=== PATIENT | male | born 1950 | race Caucasian/White ===

== ENCOUNTER 2016-08-18 20:53 | Inpatient (IN) | payer MEDICARE ==
[~2016-08-18] VITALS: Ht 170.2 cm; Wt 65.3 kg
[~2016-08-18 20:53] MED LIST: ASPI-482 PO; ATORVASTATIN CA80 MG PO; CARV25TA2 PO; DIGO125T PO; ENAL20TA PO; FLUO20CA8 PO; HYDR12.58 PO; HYDR15SO4 PO; METF10002 PO; NITR0.4T SL
[2016-08-18] MEDS ORDERED: HEPARIN for IV BOLUS 10,000 UNIT/10 ML VIAL. ONE ×2 (21:03→21:08)
[2016-08-18] MEDS ORDERED: LIDOCAINE 2% 20 ML VIAL. ONE (21:06)
[2016-08-18] MEDS ORDERED: IODIXANOL 320 MG/ML 100 ML VIAL. ONE (21:06)
[2016-08-18] MEDS ORDERED: ASPIRIN 81 MG TAB.CHEW PO ONE (21:15)
[2016-08-18 21:18] LABS: BASO # 0.1 x10^3/uL (0.0-0.2); BASO % 1 % (0-3); EOS % 3 % (0-3); HEMATOCRIT 31.9 % (39.0-53.0); HEMOGLOBIN 10.7 g/dL (13.0-17.5); LYMPH # 2.6 x10^3/uL (1.0-4.8); LYMPH % 24 % (24-48); MEAN CORPUSCULAR HEMOGLOBIN 31 pg (25-35); MEAN CORPUSCULAR HGB CONC 34 g/dL (31-37); MEAN CORPUSCULAR VOLUME 92 fL (79-100); MONO % 8 % (0-9); NEUT % 64 % (31-73); PLATELET COUNT 172 x10^3/uL (140-400); RED BLOOD COUNT 3.45 x10^6/uL (4.30-5.70); RED CELL DISTRIBUTION WIDTH 15.2 % (11.5-14.5); WHITE BLOOD COUNT 10.7 x10^3/uL (4.0-11.0)
[2016-08-18 21:24] LABS: PROTHROMBIN TIME PATIENT 12.5 SEC (11.7-14.0)
--- NOTE | 2016-08-18 21:41 | PHYS DOC ---
Adult General Chief Complaint Chief Complaint: CHEST PAIN HPI HPI 66-year-old male with a history of ischemic cardiomyopathy who is recently had a stent placed at [facility] presents after several syncopal episodes today. He also complained of some mild mid sternal chest discomfort. He denies any significant shortness of breath nausea or diaphoresis. Because of his syncopal episodes EMS was called to the house and they checked an EKG and noted that there was ST elevation. A code STEMI was called in the field. Dr. Mendez was notified of the code STEMI immediately after the code was called. [] Review of Systems Review of Systems Constitutional: Denies fever or chills [] Eyes: Denies change in visual acuity, redness, or eye pain [] HENT: Denies nasal congestion or sore throat [] Respiratory: Denies cough or shortness of breath [] Cardiovascular: No additional information not addressed in HPI [] GI: Denies abdominal pain, nausea, vomiting, bloody stools or diarrhea [] : Denies dysuria or hematuria [] Musculoskeletal: Denies back pain or joint pain [] Integument: Denies rash or skin lesions [] Neurologic: Denies headache, focal weakness or sensory changes [] Endocrine: Denies polyuria or polydipsia [] Current Medications Current Medications Current Medications Medications (Trade) Dose Ordered Sig/Yan Start Time Stop Time Status Last Admin Dose Admin Aspirin (Children'S Aspirin) 324 mg 1X ONCE 08/18/16 21:15 08/18/16 21:16 DC Heparin Sodium (Porcine) 1,900 unit PRN Q6HRS PRN 08/18/16 21:45 Heparin Sodium (Porcine) 17457 unit 10,000 unit STK-MED ONCE 08/18/16 21:08 08/18/16 21:09 DC Heparin Sodium/ Dextrose 500 ml @ 0 mls/hr CONT PRN 08/18/16 21:45 08/18/16 22:01 0 MLS/HR Heparin Sodium/ Sodium Chloride 1,000 ml @ As Directed STK-MED ONCE 08/18/16 21:06 08/18/16 21:07 DC Iodixanol (Visipaque 320) 100 ml STK-MED ONCE 08/18/16 21:06 08/18/16 21:07 DC Lidocaine HCl 20 ml STK-MED ONCE 08/18/16 21:06 08/18/16 21:07 DC Morphine Sulfate 4 mg PRN Q2HR PRN 08/18/16 21:45 08/19/16 21:44 Nitroglycerin (Nitrostat) 0.4 mg PRN Q5MIN PRN 08/18/16 21:45 08/19/16 21:44 Ondansetron HCl (Zofran) 4 mg PRN Q8HRS PRN 08/18/16 21:45 08/19/16 21:44 Allergies Allergies Allergies Coded Allergies Type Severity Reaction Last Updated Verified No Known Drug Allergies 02/28/14 No Physical Exam Physical Exam Constitutional: Well developed, well nourished, no acute distress, non-toxic appearance. [] HENT: Normocephalic, atraumatic, bilateral external ears normal, oropharynx moist, no oral exudates, nose normal. [] Eyes: PERRLA, EOMI, conjunctiva normal, no discharge. [] Neck: Normal range of motion, no tenderness, supple, no stridor. [] Cardiovascular:Heart rate regular rhythm, no murmur [] Lungs & Thorax: Bilateral breath sounds clear to auscultation [] Abdomen: Bowel sounds normal, soft, no tenderness, no masses, no pulsatile masses. [] Skin: Warm, dry, no erythema, no rash. [] Back: No tenderness, no CVA tenderness. [] Extremities: No tenderness, no cyanosis, no clubbing, ROM intact, no edema. [] Neurologic: Alert and oriented X 3, normal motor function, normal sensory function, no focal deficits noted. [] Psychologic: Affect normal, judgement normal, mood normal. [] Current Patient Data Vital Signs Vital Signs Date Time Temp Pulse Resp B/P Pulse Ox O2 Delivery O2 Flow Rate FiO2 08/18/16 21:41 79 117/63 97 Nasal Cannula 2 08/18/16 21:36 98.3 20 98.3 Lab Values Laboratory Tests Test 08/18/16 20:58 08/18/16 21:05 POC Troponin I 0.03ng/ml (<0.08) White Blood Count 10.7x10^3/uL (4.0-11.0) Red Blood Count 3.45x10^6/uL (4.30-5.70) L Hemoglobin 10.7g/dL (13.0-17.5) L Hematocrit 31.9% (39.0-53.0) L Mean Corpuscular Volume 92fL (79-100) Mean Corpuscular Hemoglobin 31pg (25-35) Mean Corpuscular Hemoglobin Concent 34g/dL (31-37) Red Cell Distribution Width 15.2% (11.5-14.5) H Platelet Count 172x10^3/uL (140-400) Neutrophils (%) (Auto) 64% (31-73) Lymphocytes (%) (Auto) 24% (24-48) Monocytes (%) (Auto) 8% (0-9) Eosinophils (%) (Auto) 3% (0-3) Basophils (%) (Auto) 1% (0-3) Neutrophils # (Auto) 6.8x10^3uL (1.8-7.7) Lymphocytes # (Auto) 2.6x10^3/uL (1.0-4.8) Monocytes # (Auto) 0.9x10^3/uL (0.0-1.1) Eosinophils # (Auto) 0.3x10^3/uL (0.0-0.7) Basophils # (Auto) 0.1x10^3/uL (0.0-0.2) Prothrombin Time 12.5SEC (11.7-14.0) Prothrombin Time INR 1.0 (0.8-1.1) PTT 27SEC (24-38) Sodium Level 134mmol/L (136-145) L Potassium Level 4.3mmol/L (3.5-5.1) Chloride Level 98mmol/L (98-107) Carbon Dioxide Level 22mmol/L (21-32) Anion Gap 14 (6-14) Blood Urea Nitrogen 38mg/dL (8-26) H Creatinine 1.4mg/dL (0.7-1.3) H Estimated GFR (Cockcroft-Gault) 50.5 Glucose Level 191mg/dL (70-99) H Calcium Level 9.4mg/dL (8.5-10.1) Magnesium Level 1.6mg/dL (1.8-2.4) L Total Bilirubin 0.4mg/dL (0.2-1.0) Direct Bilirubin 0.1mg/dL (0.0-0.2) Aspartate Amino Transferase (AST) 20U/L (15-37) Alanine Aminotransferase (ALT) 27U/L (16-63) Alkaline Phosphatase 52U/L (46-116) Creatine Kinase 37U/L (39-308) L Creatine Kinase MB (Mass) 1.1ng/mL (0.0-3.6) Creatine Kinase MB Relative Index 3.0% (0-4) Troponin I Quantitative < 0.017ng/mL (0.000-0.055) FT-Kbj-Z-Type Natriuretic Peptide 930pg/mL (0-124) H Total Protein 7.0g/dL (6.4-8.2) Albumin 3.6g/dL (3.4-5.0) Laboratory Tests 08/18/16 21:05 Laboratory Tests 08/18/16 21:05 EKG EKG [EKG normal sinus rhythm with ST elevation V1 through V3 with reciprocal changes inferiorly rate of 70] Radiology/Procedures Radiology/Procedures [] Impressions: Chest x-ray: Negative exam pacer in place Course & Med Decision Making Course & Med Decision Making Pertinent Labs and Imaging studies reviewed. (See chart for details) [ED course: Evaluation reveals a 66-year-old male in absolutely no distress. On arrival his EKG was interpreted by me as a likely ST elevation a code STEMI was already underway and I spoke with Dr. Mendez who was in route at the time of our conversation. I told him the patient's symptoms were not concerning however his EKG was ominous appearing. After Dr. Mendez arrived he reviewed the EKG along with questioning the patient and agreed with me that he did not think this was an acute ST elevation OK despite the EKG findings. However, we did determine that it wouldn't be in the patient's best interest to be admitted to the hospital on a heparin drip. Aspirin was given to the patient by EMS in route. Patient remained pain-free throughout his stay in the department.] Dragon Disclaimer Dragon Disclaimer This electronic medical record was generated, in whole or in part, using a voice recognition dictation system. Departure Departure Impression: Primary Impression: Acute coronary syndrome Additional Impression: Syncope Disposition: 09 ADMITTED INPATIENT Admitting Physician: Other (Reusch) Condition: STABLE Referrals: LLUVIA BRAGA MD (PCP) Problem Qualifiers Additional Impression: Syncope Syncope type: unspecified Qualified Code: R55 - Syncope and collapse TRINI CASTILLO DO Aug 18, 2016 21:40
[2016-08-18 21:44] LABS: CALCIUM 9.4 mg/dL (8.5-10.1); CREATININE 1.4 mg/dL (0.7-1.3); GFR 50.5; POTASSIUM 4.3 mmol/L (3.5-5.1)
[2016-08-18] MEDS ORDERED: MORPHINE SULFATE 4 MG/ML DISP.SYRIN. IV PRN (21:45)
[2016-08-18] MEDS ORDERED: NITROGLYCERIN SUBLINGUAL 0.4 MG BOTTLE OF 25. SL PRN (21:45)
[2016-08-18] MEDS ORDERED: HEPARIN for IV BOLUS 10,000 UNIT/10 ML VIAL. IV PRN (21:45)
[2016-08-18] MEDS ORDERED: ONDANSETRON PF 4 MG/2 ML VIAL. IV PRN (21:45)
[2016-08-18 21:46] LABS: CKMB MASS 1.1 ng/mL (0.0-3.6)
[2016-08-18 21:48] LABS: ALBUMIN 3.6 g/dL (3.4-5.0); DIRECT BILIRUBIN 0.1 mg/dL (0.0-0.2); MAGNESIUM 1.6 mg/dL (1.8-2.4); TOTAL BILIRUBIN 0.4 mg/dL (0.2-1.0)
--- NOTE | 2016-08-18 21:59 | PDOC2 ---
CONSULT Date of Consult Date of Consult DATE: 08/18/16 TIME: 21:41 Reason for Consult Reason for Consult: Syncope, abnormal ekg Referring Physician Referring Physician: Dr. Yarbrough Identification/Chief Complaint Chief Complaint Syncope Source Source: Patient History of Present Illness Reason for Visit: The patient is a 66 year old male who reports an episode of syncope this evening. He was doing his usual activities and reportedly lost consciousness. He denies any chest pain, SOB or lightheadedness prior to the episode. He was transported to the ER and on exam is pain free and feeling well. He has a history of a large WV in the late with an ICD placed in 2005 and replaced in 2012. He is followed at and reports a heart cath there last month and received a stent. He reports normal function of his Medtronics ICD for a reportedly ischemic cardiomyopathy. His EKG shows anterior ST elevation. His initial troponin is normal. 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 Past Medical History Cardiovascular: CAD, CHF, HTN, WV, Syncope, Hyperlipidemia Pulmonary: COPD GI: GERD Renal/: Benign prostatic enlarg. Past Surgical History Past Surgical History: Other (coronary stents, ICD) Family History Family History: Heart Disease Social History <1 pack per day Current Medications Current Medications Current Medications Heparin Sodium (Porcine) 90608 unit 10,000 unit STK-MED ONCE .ROUTE ; Start at 21:03; Stop 08/18/16 at 21:04; Status DC Heparin Sodium/ Sodium Chloride 1,000 ml @ As Directed STK-MED ONCE .ROUTE ; Start 08/18/16 at 21:06; Stop 08/18/16 at 21:07; Status DC Lidocaine HCl 20 ml STK-MED ONCE .ROUTE ; Start 08/18/16 at 21:06; Stop at 21:07; Status DC Iodixanol (Visipaque 320) 100 ml STK-MED ONCE .ROUTE ; Start 08/18/16 at 21:06; Stop 08/18/16 at 21:07; Status DC Aspirin (Children'S Aspirin) 324 mg 1X ONCE PO ; Start 08/18/16 at 21:15; Stop 08/18/16 at 21:16; Status DC Heparin Sodium (Porcine) 10,000 unit STK-MED ONCE .ROUTE ; Start 08/18/16 at 21: 08; Stop 08/18/16 at 21:09; Status DC Active Scripts Active Reported Metformin Hcl 1,000 Mg Tablet 1,000 Mg PO 2TABS PO BID Aspir 81 (Aspirin) 81 Mg Tablet.dr 81 Mg PO DAILY Enalapril Maleate 20 Mg Tablet 1 Tab PO BID Nitrostat (Nitroglycerin) 0.4 Mg Tab.subl 0.4 Mg SL PRN CHEST PAINS Digoxin 125 Mcg Tablet 125 Mcg PO DAILY Hydrochlorothiazide Tablet (Hydrochlorothiazide) 12.5 Mg Tablet 12.5 Mg PO DAILY Fluoxetine Hcl 20 Mg Capsule 20 Mg PO DAILY Carvedilol 25 Mg Tablet 25 Mg PO BID Atorvastatin Calcium 80 Mg Tablet 80 Mg PO HS Allergies Allergies: Coded Allergies: No Known Drug Allergies (Unverified , 02/28/14) ROS Cardiovascular: yes Other (syncope) Physical Exam General: Alert, Cooperative, No acute distress HEENT: PERRLA Lungs: Clear to auscultation Heart: Regular rate Abdomen: Normal bowel sounds Extremities: No clubbing Skin: No rashes Labs Labs Laboratory Tests Test 08/18/16 20:58 08/18/16 21:05 Bedside Troponin I 0.03ng/ml (<0.08) White Blood Count 10.7x10^3/uL (4.0-11.0) Red Blood Count 3.45x10^6/uL (4.30-5.70) Hemoglobin 10.7g/dL (13.0-17.5) Hematocrit 31.9% (39.0-53.0) Mean Corpuscular Volume 92fL (79-100) Mean Corpuscular Hemoglobin 31pg (25-35) Mean Corpuscular Hemoglobin Concent 34g/dL (31-37) Red Cell Distribution Width 15.2% (11.5-14.5) Platelet Count 172x10^3/uL (140-400) Neutrophils (%) (Auto) 64% (31-73) Lymphocytes (%) (Auto) 24% (24-48) Monocytes (%) (Auto) 8% (0-9) Eosinophils (%) (Auto) 3% (0-3) Basophils (%) (Auto) 1% (0-3) Neutrophils # (Auto) 6.8x10^3uL (1.8-7.7) Lymphocytes # (Auto) 2.6x10^3/uL (1.0-4.8) Monocytes # (Auto) 0.9x10^3/uL (0.0-1.1) Eosinophils # (Auto) 0.3x10^3/uL (0.0-0.7) Basophils # (Auto) 0.1x10^3/uL (0.0-0.2) Prothrombin Time 12.5SEC (11.7-14.0) Prothromb Time International Ratio 1.0 (0.8-1.1) Troponin I Quantitative < 0.017ng/mL (0.000-0.055) Laboratory Tests Test 08/18/16 20:58 08/18/16 21:05 Bedside Troponin I 0.03ng/ml (<0.08) White Blood Count 10.7x10^3/uL (4.0-11.0) Red Blood Count 3.45x10^6/uL (4.30-5.70) Hemoglobin 10.7g/dL (13.0-17.5) Hematocrit 31.9% (39.0-53.0) Mean Corpuscular Volume 92fL (79-100) Mean Corpuscular Hemoglobin 31pg (25-35) Mean Corpuscular Hemoglobin Concent 34g/dL (31-37) Red Cell Distribution Width 15.2% (11.5-14.5) Platelet Count 172x10^3/uL (140-400) Neutrophils (%) (Auto) 64% (31-73) Lymphocytes (%) (Auto) 24% (24-48) Monocytes (%) (Auto) 8% (0-9) Eosinophils (%) (Auto) 3% (0-3) Basophils (%) (Auto) 1% (0-3) Neutrophils # (Auto) 6.8x10^3uL (1.8-7.7) Lymphocytes # (Auto) 2.6x10^3/uL (1.0-4.8) Monocytes # (Auto) 0.9x10^3/uL (0.0-1.1) Eosinophils # (Auto) 0.3x10^3/uL (0.0-0.7) Basophils # (Auto) 0.1x10^3/uL (0.0-0.2) Prothrombin Time 12.5SEC (11.7-14.0) Prothromb Time International Ratio 1.0 (0.8-1.1) Troponin I Quantitative < 0.017ng/mL (0.000-0.055) Images Images CXR pending Assessment/Plan Assessment/Plan 1. Syncope. Uncertain etiology. Rhythm stable. ICD in place and will interrogate. Will obtain records from . 2. Abnormal EKG. Abnormal EKG with a history of previous large WV and ICD placement. The patient also reports a cath at last month and probable stent placement. He is on ASA and Brilenta and reports taking his medications as directed. He is pain free. Initial troponin is normal. He denies SOB, dizziness or other discomfort. His BP and rhythm are stable. I do not believe that an emergency cath is indicated. Will continue baseline medications, heparinize, rule out WV and obtain old records. This was discussed with the patient. 3. Ishemic CM. Continue meds as above. Check ECHO. records. 4. ICD. Medtronics . Will interrogate. 5. HTN. Continue medications. 6. HLD. 7. Squamous cell Ca of the vocal cords. S/P radiation treatment Thank you for allowing us to participate in the care of your patient. CHRIS SHAH MD Aug 18, 2016 21:59
[2016-08-18] MEDS ORDERED: HEPARIN for IV BOLUS 10,000 UNIT/10 ML VIAL. IV ONE (22:00)
[2016-08-18] MEDS: HEPARIN 25,000UTS/500ML PREMIX 500 ML IV PRN (22:01)
[2016-08-18 22:45] VITALS: BP 139/63
[2016-08-18 23:00] VITALS: BP 122/42
[2016-08-18 23:15] VITALS: BP 135/38
[2016-08-18 23:30] VITALS: BP 131/46
--- NOTE | 2016-08-18 23:37 | ACF ---
Admission Forms Criteria SYNCOPE Clinical Indications for Admission to Inpatient Care ( Place 'X' for any and all applicable criteria): Admission is indicated for syncope and ANY ONE of the following (1)(2)(3)(4)(5) (6)(7) : [X]I. Inpatient admission required rather than observation care (Also use Syncope: Observation Care Criteria as appropriate) because of ANY ONE of the following: [ ]a) Hemodynamic instability that is severe or persistent [ ]b) Cardiac arrhythmias of immediate concern identified or strongly suspected (eg, needs electrophysiologic study) [X]c) Acute coronary syndrome identified (Also use Myocardial Infarction or Angina Criteria form ) [ ]d) Structural cardiac disorder (eg, aortic stenosis) suspected as cause that requires immediate correction [ ]e) Respiratory symptoms (eg, dyspnea, tachypnea) that are severe or persistent [ ]f) Neurologic signs or symptoms that are severe or persistent ( eg, stroke, seizures, altered mental status) [ ]g) Severe electrolyte abnormalities requiring inpatient care [ ]h) Supplemental oxygen or respiratory treatment for over 24 hrs that are performable only in acute inpatient setting [ ]i) IV fluid to replace significant ongoing (eg, for over 24 hrs ) losses (>3 L/m2 per day) [ ]j) Continuous intravenous infusion of anticoagulation, platelet inhibitor, vasoactive, or antiarrhythmic medication(15)(16) [ ]k) Pulmonary artery catheter monitoring [ ]l) Temporary pacemaker placement(17) [ ]m) Emergent cardioversion(18) [ ]n) Other conditions, treatment or monitoring requiring inpatient admission [ ]II. Suspicion of imminently dangerous cause (eg, rare causes like pericardial tamponade, pulmonary embolism) [ ]III. Syncope causing severe injury requiring hospitalization Extended stay beyond goal length of stay may be needed for(28) [ ]a) Dangerous arrhythmia(15)(23)(27)(29) [ ]b) Myocardial ischemia [ ]c) Seizure disorder [ ]d) Syncope-related injuries The original [employer] content created by [employer] has been revised. The portions of the content which have been revised are identified through the use of italic text or in bold, and [employer] has neither reviewed nor approved the modified material. All other unmodified content is copyright [employer]. Please see references footnoted in the original [facility] edition 2016 Admission Criteria Met?: Yes CEE LIVINGSTON Aug 18, 2016 23:37
[2016-08-18 23:45] VITALS: BP 115/62
[2016-08-18 23:59] VITALS: BP 115/38
[2016-08-19] VITALS (21 sets, daily range): BP systolic 95–143; BP diastolic 32–78
[2016-08-19] MEDS ORDERED: CARV12.5 PO (02:55)
[2016-08-19] MEDS ORDERED: ENAL10TA PO (02:57)
[2016-08-19] MEDS ORDERED: FLUT16SP NS (02:59)
[2016-08-19] MEDS ORDERED: FURO-69 PO (03:09)
[2016-08-19] MEDS ORDERED: TICA90TA PO (03:09)
[2016-08-19] MEDS ORDERED: METF10002 PO (03:09)
[2016-08-19] MEDS ORDERED: MULT-246 PO (03:09)
[2016-08-19] MEDS ORDERED: SPIR25TA3 PO (03:09)
[2016-08-19] MEDS ORDERED: OMEG1CAP6 PO (03:10)
[2016-08-19] MEDS ORDERED: OMEG100021 PO (03:13)
[2016-08-19 04:45] LABS: CALCIUM 9.4 mg/dL (8.5-10.1); CREATININE 1.1 mg/dL (0.7-1.3); GFR 66.8; POTASSIUM 4.2 mmol/L (3.5-5.1)
[2016-08-19 04:47] LABS: CHOLESTEROL/HDL RATIO 2.8
--- NOTE | 2016-08-19 07:46 | EKG ---
[facility] [address] [place] [address] Test Date: 2016-08-18 Test Time: 20:55:49 Pat Name: HILDA MCKEON Department: Room: 269 1 Gender: M Subcontract Manager: : 1950 Requested By: TRINI CASTILLO Order Number: [id number] Reading MD: Xin Guerrero Measurements Intervals [place] Rate: 94 P: -5 HI: 204 QRS: 17 QRSD: 114 T: -81 QT: 340 QTc: 430 Interpretive Statements SINUS RHYTHM VENTRICULAR PREMATURE COMPLEX(ES) QRS(T) CONTOUR ABNORMALITY CONSISTENT WITH ANTEROSEPTAL INFARCT POSSIBLY RECENT ST ABNORMALITY, POSSIBLE INFEROLATERAL SUBENDOCARDIAL INJURY RI6.01 No previous ECG available for comparison Electronically Signed On 08-19-2016 20:57:34 CDT by Xin Guerrero
--- NOTE | 2016-08-19 08:06 | EKG ---
[facility] [address] [place] [address] Test Date: 2016-08-18 Test Time: 22:08:41 Pat Name: HILDA MCKEON Department: Room: 269 1 Gender: M Supervisor Glycerin: : 1950 Requested By: CHRIS SHAH Order Number: [id number] Reading MD: Measurements Intervals [place] Rate: 76 P: 70 FL: 200 QRS: 11 QRSD: 102 T: 100 QT: 380 QTc: 432 Interpretive Statements SINUS RHYTHM QRS(T) CONTOUR ABNORMALITY CONSISTENT WITH ANTEROSEPTAL INFARCT AGE UNDETERMINED T ABNORMALITY IN ANTERIOR LEADS LATERAL LEADS RI6.01 No previous ECG available for comparison
--- NOTE | 2016-08-19 08:07 | RAD ---
Portable chest, 08/18/2016: History: Chest pain Comparison is made to a study from 11/06/2015. A left-sided transvenous pacemaker is in place with 2 leads extending in the right heart. The heart size and pulmonary vascularity are normal. No pulmonary infiltrates are seen. There is unchanged blunting of the left lateral costophrenic angle probably due to scarring. Blunting of the right lateral costophrenic angle is new raising the possibility of a tiny amount of right-sided pleural fluid. An oblique line overlying the right upper chest most likely represents a skinfold. IMPRESSION: 1. Possible tiny right pleural effusion. 2. No acute pulmonary infiltrates.
[2016-08-19] MEDS ORDERED: ASPIRIN ENTERIC COATED 81 MG TABLET.DR. PO SCH (09:00)
--- NOTE | 2016-08-19 09:14 | EKG ---
[facility] [address] [place] [address] Test Date: 2016-08-19 Test Time: 09:06:06 Pat Name: HILDA MCKEON Department: Room: 269 1 Gender: M Certified Technician Specialist: MICHELLE : 1950 Requested By: MERRY GLORIA Order Number: [id number] Reading MD: Measurements Intervals [place] Rate: 65 P: 90 NV: 200 QRS: 8 QRSD: 108 T: 101 QT: 402 QTc: 419 Interpretive Statements SINUS RHYTHM VENTRICULAR PREMATURE COMPLEX(ES) QRS(T) CONTOUR ABNORMALITY CONSISTENT WITH ANTEROSEPTAL INFARCT AGE UNDETERMINED T ABNORMALITY IN ANTERIOR LEADS LATERAL LEADS ABNORMAL ECG RI6.01 No previous ECG available for comparison
--- NOTE | 2016-08-19 09:15 | PDOC ---
CARDIO Progress Notes Date and Time Date of Service 08/19/2016 Time of Evaluation 0930 Subjective Subjective: No Chest Pain, No shortness of breath, No Palpitations, No Dizziness Vitals Vitals Vital Signs Date Time Temp Pulse Resp B/P Pulse Ox O2 Delivery O2 Flow Rate FiO2 08/19/16 08:00 Room Air 2.0 08/19/16 07:00 97.9 65 17 131/35 99 97.9 Weight Weight [ ] Input and Output Intake and Output Intake and Output 08/19/16 07:00 Intake Total 881 ml Output Total 870 ml Balance 11 ml Intake Oral 740 ml IV Total 141 ml Output Urine Total 870 ml Laboratory Labs Laboratory Tests Test 08/18/16 20:58 08/18/16 21:05 08/19/16 03:45 Bedside Troponin I 0.03ng/ml (<0.08) White Blood Count 10.7x10^3/uL (4.0-11.0) Red Blood Count 3.45x10^6/uL (4.30-5.70) Hemoglobin 10.7g/dL (13.0-17.5) Hematocrit 31.9% (39.0-53.0) Mean Corpuscular Volume 92fL (79-100) Mean Corpuscular Hemoglobin 31pg (25-35) Mean Corpuscular Hemoglobin Concent 34g/dL (31-37) Red Cell Distribution Width 15.2% (11.5-14.5) Platelet Count 172x10^3/uL (140-400) Neutrophils (%) (Auto) 64% (31-73) Lymphocytes (%) (Auto) 24% (24-48) Monocytes (%) (Auto) 8% (0-9) Eosinophils (%) (Auto) 3% (0-3) Basophils (%) (Auto) 1% (0-3) Neutrophils # (Auto) 6.8x10^3uL (1.8-7.7) Lymphocytes # (Auto) 2.6x10^3/uL (1.0-4.8) Monocytes # (Auto) 0.9x10^3/uL (0.0-1.1) Eosinophils # (Auto) 0.3x10^3/uL (0.0-0.7) Basophils # (Auto) 0.1x10^3/uL (0.0-0.2) Prothrombin Time 12.5SEC (11.7-14.0) Prothromb Time International Ratio 1.0 (0.8-1.1) Activated Partial Thromboplast Time 27SEC (24-38) Sodium Level 134mmol/L (136-145) 138mmol/L (136-145) Potassium Level 4.3mmol/L (3.5-5.1) 4.2mmol/L (3.5-5.1) Chloride Level 98mmol/L (98-107) 103mmol/L (98-107) Carbon Dioxide Level 22mmol/L (21-32) 24mmol/L (21-32) Anion Gap 14 (6-14) 11 (6-14) Blood Urea Nitrogen 38mg/dL (8-26) 34mg/dL (8-26) Creatinine 1.4mg/dL (0.7-1.3) 1.1mg/dL (0.7-1.3) Estimated GFR (Cockcroft-Gault) 50.5 66.8 Glucose Level 191mg/dL (70-99) 81mg/dL (70-99) Calcium Level 9.4mg/dL (8.5-10.1) 9.4mg/dL (8.5-10.1) Magnesium Level 1.6mg/dL (1.8-2.4) Total Bilirubin 0.4mg/dL (0.2-1.0) Direct Bilirubin 0.1mg/dL (0.0-0.2) Aspartate Amino Transf (AST/SGOT) 20U/L (15-37) Alanine Aminotransferase (ALT/SGPT) 27U/L (16-63) Alkaline Phosphatase 52U/L (46-116) Creatine Kinase 37U/L (39-308) Creatine Kinase MB (Mass) 1.1ng/mL (0.0-3.6) Creatine Kinase MB Relative Index 3.0% (0-4) Troponin I Quantitative < 0.017ng/mL (0.000-0.055) 0.179ng/mL (0.000-0.055) YE-Gis-J-Type Natriuretic Peptide 930pg/mL (0-124) Total Protein 7.0g/dL (6.4-8.2) Albumin 3.6g/dL (3.4-5.0) Heparin Anti-Xa Act, Unfractionated 0.46IU/mL (0.30-0.70) Triglycerides Level 53mg/dL (0-150) Cholesterol Level 139mg/dL (0-200) LDL Cholesterol, Calculated 78mg/dL (0-100) VLDL Cholesterol, Calculated 11mg/dL (0-40) HDL Cholesterol 50mg/dL (40-60) Cholesterol/HDL Ratio 2.8 Physical Exam HEENT: Neck Supple W Full Motion Chest: Symmetric LUNGS: Clear to Auscultation Heart: S1S2, RRR (SR no significant ectopies overnight) Abdomen: Soft N/T Extremities: No Edema, No Calf Tenderness Neurology: alert, oriented, follow commands Assessment Assessment 1. Multiple syncopal episodes with nontraumatic fall: 2-3 x yesterday. The only presyncopal symptom is lightheadedness. CP free. possible arrhythmia in etiology with possible orthostatic element 2. Abnormal EKG: Intermittent changes are noted with initial EKG which then improved with subsequent EKGs. Vasopasm could not be ruled out as well. 3. CAD: PTCA in 1999. notable for lg [place] 06/2016 with stent placement (BMS vs YANNI , unknown target vessels). Compliant with DAPT 4. ICM/AICD in situ: Date of placement unknown. [employer]tr[employer]. Per pt originally placed in 1999 then 2012 lead fracture repair 5. Chronic systolic CHF: compensated 6. HTN: controlled 7. HLP: controlled 8. Squamous cell Ca of the vocal cords. S/P radiation treatment 9. ALY on CKD: suspect stage 3. improved. 10. Hx of COPD 11. Possible Orthostasis/hypotension at home: fluid intake in the last 36 hours was 6 cans of coke zero Recommendations 1. Repeat EKG, trend troponin 2. Obtain [facility] records 3. No verbalized complains of shock from AICD. Interrogate device 4. TTE 5. Remains asymptomatic, CP free. Continue with DAPT and secondary prevention 6. Heparin drip, Will consider for follow up ischemic workup pending above tests results, will discuss with primary project program manager MERRY GLORIA APRN Aug 19, 2016 09:15
[2016-08-19] MEDS ORDERED: TICAGRELOR 90 MG TABLET. PO SCH (09:30)
[2016-08-19] MEDS ORDERED: NITROGLYCERIN SUBLINGUAL 0.4 MG BOTTLE OF 25. SL PRN ×2 (09:30→11:04)
[2016-08-19] MEDS ORDERED: DEXTROSE 50% 25 GM / 50ML DISP.SYRIN. IV PRN (09:30)
[2016-08-19] MEDS ORDERED: FLUTICASONE 50MCG/NASAL SPRAY 16GM BOTTLE. NS PRN (09:30)
--- NOTE | 2016-08-19 09:44 | CARD ---
APPROVED REPORT EXAM: Two-dimensional and M-mode echocardiogram with Doppler and color Doppler. Other Information Quality : Average Rhythm : NSR INDICATION Cardiomyopathy 2D DIMENSIONS Left Atrium(2D)4.9 (1.6-4.0cm)IVSd1.0 (0.7-1.1cm) Aortic Root(2D)3.3 (2.0-3.7cm)LVDd6.5 (3.9-5.9cm) LVOT Diameter2.2 (1.8-2.4cm)PWd1.0 (0.7-1.1cm) LVDs5.6 (2.5-4.0cm)FS (%) 14.7 % SV66.5 mlLVEF(%)30.4 (>50%) Aortic Valve AoV Peak Alfie.150.2cm/sAoV VTI29.1cm AO Peak GR.9.0mmHgLVOT VTI 24.68cm AO Mean GR.5mmHgAVA (VTI)3.18cm2 AI P 1/2 [id number] Mitral Valve MV E Roiuogws05.1cm/sMV E Peak Gr.4mmHg MV DECEL [id number] A Mohrepyk87.8cm/s MV E Mean Gr.2mmHgMV PIQ71qp E/A Ratio1.2MV A Gcgvtgqh866bs MVA (PHT)4.58cm2 TDI Lateral E' P. V5.02cm/sMedial E' P. V4.29cm/s E/Lateral E'16.8E/Medial E'19.6 Tricuspid Valve TR P. Ehfknjxu139wb/sRAP [id number] TR Peak Gr.25yuTcSUSH95foQf Pulmonary Vein S1 Uraxkajd71.2cm/sS2 Jvrmuxal36.62cm/s D2 Nfdrdsuv22.6cm/s LEFT VENTRICLE The Left Ventricle is mildly dilated. There is normal left ventricular wall thickness. Left ventricle systolic function is moderately impaired. The Ejection Fraction is 25-30%. The distal 1/2 of the LV is severely hypokinetic, consistent with mid to distal LAD or mid to distal RCA large vessel infarct. Tissue Doppler imaging reveals moderate left ventricular diastolic dysfunction. RIGHT VENTRICLE The right ventricle is normal size. The right ventricular systolic function is normal. There is a pac emaker/ICD lead seen in the RV/RA. ATRIA The left atrium is mildly dilated. The right atrium size is normal. The interatrial septum is intact with no evidence for an atrial septal defect or patent foramen ovale as noted on 2-D or Doppler imagi ng. AORTIC VALVE The aortic valve is mildly calcified. The aortic valve is trileaflet. Doppler and Color Flow revealed mild aortic regurgitation. There is no significant aortic valvular stenosis. MITRAL VALVE The mitral valve is normal in structure and function. There is no mitral valve stenosis. Doppler and Color Flow revealed mild mitral regurgitation. TRICUSPID VALVE The tricuspid valve is not well visualized. Doppler and Color Flow revealed mild tricuspid regurgitat ion. The PA pressure was estimated at 32 mmHg. There is no tricuspid valve stenosis. PULMONIC VALVE The pulmonic valve is not well visualized. Doppler and Color Flow revealed no pulmonic valvular regur gitation. There is no pulmonic valvular stenosis. GREAT VESSELS The aortic root is normal in size. Normal pulmonary venous flow (Doppler). The IVC is dilated and col lapses >50% with inspiration. PERICARDIAL EFFUSION There is moderate left pleural effusion. There is no evidence of significant pericardial effusion. Critical Notification Date: 08/19/2016 Time: 09:21 Other Discipline : Rosa Isela Camacho APRN Critical Value: Yes <Conclusion> The distal 1/2 of the LV is severely hypokinetic, consistent with mid to distal LAD or mid to distal RCA large vessel infarct. There is a pacemaker/ICD lead seen in the RV/RA. Doppler and Color Flow revealed mild aortic regurgitation. The IVC is dilated and collapses >50% with inspiration. There is moderate left pleural effusion.
[2016-08-19] MEDS: ASPIRIN ENTERIC COATED 325 MG TABLET.DR. PO SCH (10:21)
[2016-08-19] MEDS: FLUOXETINE HCL 20 MG CAPSULE PO SCH (10:22)
[2016-08-19] MEDS: CARVEDILOL 12.5 MG TABLET PO SCH ×2 (10:22→16:42)
[2016-08-19] MEDS: MULTIVITAMIN with MINERAL TABLET. PO SCH (10:22)
[2016-08-19] MEDS: SPIRONOLACTONE 25 MG TABLET PO SCH (10:23)
[2016-08-19] MEDS: TICAGRELOR 90 MG TABLET. PO SCH ×2 (10:23→20:22)
--- NOTE | 2016-08-19 11:55 | HP ---
ADMIT DATE: 08/19/2016 CHIEF COMPLAINT: Syncope. HISTORY OF PRESENT ILLNESS: The patient is a 66-year-old smoker with significant heart disease dating back for the past 15 years, who presented to the hospital with several syncopal episodes. The patient himself does not recall all of them. He relates that he fell on his back once, is not sure that he actually lost consciousness with this. His family, however, relates that he had several syncopal events, which finally brought him to the hospital. Of note, the patient is actually followed by [facility] and actually had a cardiac catheterization with a single stent placement last month. His medications were adjusted as well. He does have a Medtr[employer] ICD in place, which apparently was tested as well and was shown to be normal. 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 FAMILY HISTORY: The patient denies any heart disease in the family or diabetes. SOCIAL HISTORY: Lives with his , continues to smoke, but has cut down from 2 pack per day habit to half a pack since 2005. ALLERGIES: No known drug allergies. MEDICATIONS: MAR reconciled with home medications. REVIEW OF SYSTEMS: The patient feels fine today. Denies any pain. Denies any palpitations, chest pain or shortness of breath. Rest of organ system review is negative. PHYSICAL EXAMINATION: VITAL SIGNS: From today show blood pressure of 131/75, heart rate of 65, respiratory rate is 17. He is afebrile. GENERAL: This is a well-nourished 66-year-old gentleman, alert and oriented, in no acute distress. HEENT: Shows no scleral icterus. NECK: Supple, without any lymphadenopathy. LUNGS: Clear to auscultation bilaterally. CARDIOVASCULAR: Heart is regular rate and rhythm. ICD in left upper chest. ABDOMEN: Has positive bowel sounds, soft, nontender. EXTREMITIES: Show no edema. SKIN: Warm, soft and dry. LABORATORY DATA: CBC with a WBC of 10.7, hemoglobin 10.7, platelets of 172. Chemistries with a BUN and creatinine of 34 and 1.1. Of note, at time of admission, this was 38 and 1.4. Electrolytes within normal. Troponins initially negative, repeat showing 0.179. Lipid profile is within normal limits. IMAGING: Chest x-ray obtained last night shows possible tiny right pleural effusion, no infiltrates. ASSESSMENT AND PLAN: The patient is a 66-year-old gentleman with CAD, diabetes who presents with syncopal events. These are possibly due to medication adjustments that been made at his last visit. He, however, has elevated troponins again. . ____ from Cardiology has seen him already. Further recommendations pending. For his diabetes, blood sugars actually have been fairly well controlled. We will monitor with insulin sliding scale. He is only on metformin at home, which we will hold for now. For his CAD, we will continue home medications. The patient continues to abuse tobacco despite having not only head and neck cancer, but also severe CAD and CHF. Cessation was strongly urged. DAYTON OBRIEN MD DR: TARIK/nts JOB#: [id number] / [id number] [place] Lund
[2016-08-19] MEDS: INSULIN ASPART 300 UNITS/3 ML INSULN.PEN SQ SCH ×2 (12:45→16:43)
[2016-08-19] MEDS ORDERED: ATORVASTATIN CALCIUM 40 MG TABLET. PO SCH (21:00)
[2016-08-20] MEDS: HEPARIN 25,000UTS/500ML PREMIX 500 ML IV PRN (01:32)
[2016-08-20 03:00] VITALS: BP 140/40
[2016-08-20 06:44] LABS: BASO % 1 % (0-3); EOS % 3 % (0-3); HEMATOCRIT 30.7 % (39.0-53.0); HEMOGLOBIN 10.3 g/dL (13.0-17.5); LYMPH # 1.8 x10^3/uL (1.0-4.8); LYMPH % 26 % (24-48); MEAN CORPUSCULAR HEMOGLOBIN 31 pg (25-35); MEAN CORPUSCULAR HGB CONC 34 g/dL (31-37); MEAN CORPUSCULAR VOLUME 91 fL (79-100); MONO % 9 % (0-9); NEUT % 62 % (31-73); PLATELET COUNT 161 x10^3/uL (140-400); RED BLOOD COUNT 3.37 x10^6/uL (4.30-5.70); RED CELL DISTRIBUTION WIDTH 15.5 % (11.5-14.5)
[2016-08-20 06:46] LABS: CALCIUM 8.9 mg/dL (8.5-10.1); CREATININE 1.2 mg/dL (0.7-1.3); GFR 60.4; POTASSIUM 4.1 mmol/L (3.5-5.1)
[2016-08-20 07:00] VITALS: BP 131/40
[2016-08-20] MEDS: INSULIN ASPART 300 UNITS/3 ML INSULN.PEN SQ SCH ×2 (08:00→12:00)
[2016-08-20] MEDS: ASPIRIN ENTERIC COATED 325 MG TABLET.DR. PO SCH (08:00)
[2016-08-20] MEDS ORDERED: FUROSEMIDE 20 MG TABLET PO SCH (09:00)
[2016-08-20] MEDS ORDERED: LISINOPRIL 10 MG TABLET PO SCH (09:00)
[2016-08-20] MEDS ORDERED: OMEGA-3 FATTY ACIDS/FISH OIL 1,000 MG CAPSULE. PO SCH (09:00)
--- NOTE | 2016-08-20 09:54 | PDOC ---
CARDIO Progress Notes Date and Time Date of Service 08/20/2016 Time of Evaluation 0920 Subjective Subjective: No Chest Pain, No shortness of breath, No Palpitations, No Dizziness, Other (ambulatory without difficulty) Vitals Vitals Vital Signs Date Time Temp Pulse Resp B/P Pulse Ox O2 Delivery O2 Flow Rate FiO2 08/20/16 08:00 Room Air 08/20/16 07:00 98.1 63 17 131/40 97 98.1 08/19/16 08:00 2.0 Weight Weight [ ] Input and Output Intake and Output Intake and Output 08/20/16 07:00 Intake Total 2091 ml Output Total 3275 ml Balance -1184 ml Intake Oral 1650 ml IV Total 441 ml Output Urine Total 3275 ml Laboratory Labs Laboratory Tests Test 08/19/16 10:00 08/19/16 12:19 08/19/16 15:45 08/19/16 16:40 Heparin Anti-Xa Act, Unfractionated 0.34IU/mL (0.30-0.70) 0.29IU/mL (0.30-0.70) Troponin I Quantitative 0.105ng/mL (0.000-0.055) Glucose (Fingerstick) 178mg/dL (70-99) 88mg/dL (70-99) Test 08/19/16 20:24 08/19/16 23:00 08/20/16 05:50 Glucose (Fingerstick) 160mg/dL (70-99) Heparin Anti-Xa Act, Unfractionated 0.36IU/mL (0.30-0.70) 0.38IU/mL (0.30-0.70) White Blood Count 7.0x10^3/uL (4.0-11.0) Red Blood Count 3.37x10^6/uL (4.30-5.70) Hemoglobin 10.3g/dL (13.0-17.5) Hematocrit 30.7% (39.0-53.0) Mean Corpuscular Volume 91fL (79-100) Mean Corpuscular Hemoglobin 31pg (25-35) Mean Corpuscular Hemoglobin Concent 34g/dL (31-37) Red Cell Distribution Width 15.5% (11.5-14.5) Platelet Count 161x10^3/uL (140-400) Neutrophils (%) (Auto) 62% (31-73) Lymphocytes (%) (Auto) 26% (24-48) Monocytes (%) (Auto) 9% (0-9) Eosinophils (%) (Auto) 3% (0-3) Basophils (%) (Auto) 1% (0-3) Neutrophils # (Auto) 4.3x10^3uL (1.8-7.7) Lymphocytes # (Auto) 1.8x10^3/uL (1.0-4.8) Monocytes # (Auto) 0.6x10^3/uL (0.0-1.1) Eosinophils # (Auto) 0.2x10^3/uL (0.0-0.7) Basophils # (Auto) 0.0x10^3/uL (0.0-0.2) Sodium Level 141mmol/L (136-145) Potassium Level 4.1mmol/L (3.5-5.1) Chloride Level 106mmol/L (98-107) Carbon Dioxide Level 23mmol/L (21-32) Anion Gap 12 (6-14) Blood Urea Nitrogen 22mg/dL (8-26) Creatinine 1.2mg/dL (0.7-1.3) Estimated GFR (Cockcroft-Gault) 60.4 Glucose Level 121mg/dL (70-99) Calcium Level 8.9mg/dL (8.5-10.1) Magnesium Level 2.0mg/dL (1.8-2.4) Physical Exam HEENT: Neck Supple W Full Motion Chest: Symmetric LUNGS: Clear to Auscultation Heart: S1S2, RRR (SR with intermittent PVCs), murmurs (BAUTISTA diastolic murmur 2/6 ; 2/6 systolic murmur to LLS border) Abdomen: Soft N/T Extremities: No Edema, No Calf Tenderness Neurology: alert, oriented, follow commands Assessment Assessment 1. Multiple syncopal episodes with nontraumatic fall: 2-3x. CP free. Possible vasovagal episode with element of inadequate po hydration. No orthostasis 2. Abnormal EKG: Intermittent changes are noted with initial EKG which then improved with subsequent EKGs. SR intermittent PVCs. Remains CP free 3. CAD: PTCA in 1999. notable for STEMI on 07/04/2016 with stent placement (YANNI x2 to type 3 LAD with 10% residual post intervention). LCx 20%, RCA (30% proximal/60 and 70% midportion/ 30% distal 4. ICM: EF 06/2016 20%, repeat TTE with 25-30% 5. AICD in situ: Date of initial placement 1999 Medtronic. Replaced Gen/lead on 05/26/2012 noted with Benji lead fracture. Interrogation revealed normal device function without significant arrhythmia nor treatment 5. Chronic systolic CHF: compensated 6. HTN: controlled 7. HLP: controlled 8. Squamous cell Ca of the vocal cords. S/P radiation treatment 9. CKD3 10. Hx of COPD 11. Hx of PAD 12. Tobaccoism Recommendations 1. [facility] records reviewed as above 2. Discussed adequate hydration with fluid restriction 2000 ml daily and daily weight. Tapering Coke consumption. 3. Continue optimization and secondary prevention. Including DAPT and smoking cessation 4. DC heparin drip 5. Follow up with primary boat dispatcher next week. MERRY GLORIA APRN Aug 20, 2016 09:54
[2016-08-20] MEDS ORDERED: ASPIRIN ENTERIC COATED 81 MG TABLET.DR. PO SCH (10:00)
[2016-08-20] MEDS: CARVEDILOL 12.5 MG TABLET PO SCH (10:04)
[2016-08-20] MEDS: FLUOXETINE HCL 20 MG CAPSULE PO SCH (10:04)
[2016-08-20] MEDS: MULTIVITAMIN with MINERAL TABLET. PO SCH (10:04)
[2016-08-20] MEDS: SPIRONOLACTONE 25 MG TABLET PO SCH (10:05)
[2016-08-20] MEDS: TICAGRELOR 90 MG TABLET. PO SCH (10:06)
--- NOTE | 2016-08-20 10:59 | PDOC ---
PROGRESS NOTES Chief Complaint Chief Complaint Syncope ASSESSMENT AND PLAN: 1. Syncope: resolved. ? due to dehydration. lowish BP resolved w/o changes ni cardiac meds 2. ACS: mild troponin leak, but had cath with stent placement 1 month ago. cardiac service following . 3. CAD/CHF: long-standing hx with CABG/cath as well as ICD placement in 2002, AICD in 2012. followed by outside cardiology 4. DM2: home metformin on hold for now. ISS with fair control 5. HLD: on statin 6. Hx H&N CA: cured 7. Tobacco abuse: strongly urged complete cessation 8. Dispo: cardiac input pending Vitals Vitals Vital Signs Date Time Temp Pulse Resp B/P Pulse Ox O2 Delivery O2 Flow Rate FiO2 08/20/16 10:05 63 131/40 08/20/16 08:00 Room Air 08/20/16 07:00 98.1 17 97 98.1 08/19/16 08:00 2.0 Physical Exam General: Alert, Cooperative, No acute distress Heart: Regular rate Abdomen: Normal bowel sounds Extremities: No clubbing Skin: No rashes Labs LABS Laboratory Tests Test 08/19/16 12:19 08/19/16 15:45 08/19/16 16:40 08/19/16 20:24 Glucose (Fingerstick) 178mg/dL (70-99) 88mg/dL (70-99) 160mg/dL (70-99) Heparin Anti-Xa Act, Unfractionated 0.29IU/mL (0.30-0.70) Test 08/19/16 23:00 08/20/16 05:50 Heparin Anti-Xa Act, Unfractionated 0.36IU/mL (0.30-0.70) 0.38IU/mL (0.30-0.70) White Blood Count 7.0x10^3/uL (4.0-11.0) Red Blood Count 3.37x10^6/uL (4.30-5.70) Hemoglobin 10.3g/dL (13.0-17.5) Hematocrit 30.7% (39.0-53.0) Mean Corpuscular Volume 91fL (79-100) Mean Corpuscular Hemoglobin 31pg (25-35) Mean Corpuscular Hemoglobin Concent 34g/dL (31-37) Red Cell Distribution Width 15.5% (11.5-14.5) Platelet Count 161x10^3/uL (140-400) Neutrophils (%) (Auto) 62% (31-73) Lymphocytes (%) (Auto) 26% (24-48) Monocytes (%) (Auto) 9% (0-9) Eosinophils (%) (Auto) 3% (0-3) Basophils (%) (Auto) 1% (0-3) Neutrophils # (Auto) 4.3x10^3uL (1.8-7.7) Lymphocytes # (Auto) 1.8x10^3/uL (1.0-4.8) Monocytes # (Auto) 0.6x10^3/uL (0.0-1.1) Eosinophils # (Auto) 0.2x10^3/uL (0.0-0.7) Basophils # (Auto) 0.0x10^3/uL (0.0-0.2) Sodium Level 141mmol/L (136-145) Potassium Level 4.1mmol/L (3.5-5.1) Chloride Level 106mmol/L (98-107) Carbon Dioxide Level 23mmol/L (21-32) Anion Gap 12 (6-14) Blood Urea Nitrogen 22mg/dL (8-26) Creatinine 1.2mg/dL (0.7-1.3) Estimated GFR (Cockcroft-Gault) 60.4 Glucose Level 121mg/dL (70-99) Calcium Level 8.9mg/dL (8.5-10.1) Magnesium Level 2.0mg/dL (1.8-2.4) Review of Systems Review of Systems no CP/SOB/dizziness. 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
[2016-08-20 11:00] VITALS: BP 116/51
[2016-08-20 15:00] VITALS: BP 128/52
--- NOTE | 2016-08-21 10:40 | DS ---
DATE OF DISCHARGE: 08/20/2016 CHIEF COMPLAINT: Syncope. HOSPITAL COURSE: The patient is a 66-year-old gentleman with significant history of CAD, CHF, who presented to the Emergency Room with syncope. Per family, multiple episodes, he does not recall any. Also had complained of some chest pain with one of the episodes prompting presentation to the Emergency Room. He was admitted for rule out and further workup. No further syncopal or presyncopal episodes occurred. For his chest pain, he was ruled out with serial enzymes. He had a tiny troponin leak, but with stent placement just one month ago, he was only observed for now. Cardiology service was following. His other medical issues including diabetes were kept under good control. Tobacco cessation was strongly urged. PHYSICAL EXAMINATION: Please refer to note from same day. DISCHARGE DIAGNOSIS: Syncope. DISCHARGE DISPOSITION: To home. DISCHARGE CONDITION: Improved. DISCHARGE MEDICATIONS: Resume same medications as prior to admit. DISCHARGE INSTRUCTIONS: The patient will follow up with his PCP and quality technician. DAYTON OBRIEN MD DR: TARIK/nts JOB#: [id number] / [id number] LLUVIA Ferrer MD
== END 2016-08-20 16:05 | disposition home or self-care (01) | DRG 311 ==
LOC: ER 20:53 → CVICU 21:45
PROVIDERS: ADMIT Internal Medicine Hematology & Oncology; ATTEND Internal Medicine Hematology & Oncology
DX: I24.9 Acute ischemic heart disease, unspecified (principal); I13.0 Hypertensive heart and chronic kidney disease with heart failure and stage 1 through stage 4 chronic kidney disease, or unspecified chronic kidney disease; I50.22 Chronic systolic (congestive) heart failure; E11.22 Type 2 diabetes mellitus with diabetic chronic kidney disease; E78.5 Hyperlipidemia, unspecified; E86.0 Dehydration; F17.200 Nicotine dependence, unspecified, uncomplicated; I25.10 Atherosclerotic heart disease of native coronary artery without angina pectoris; I25.5 Ischemic cardiomyopathy; I49.3 Ventricular premature depolarization; J44.9 Chronic obstructive pulmonary disease, unspecified; K21.9 Gastro-esophageal reflux disease without esophagitis; N18.3 Chronic kidney disease, stage 3 (moderate); N40.0 Benign prostatic hyperplasia without lower urinary tract symptoms; I25.2 Old myocardial infarction; Z79.82 Long term (current) use of aspirin; Z85.21 Personal history of malignant neoplasm of larynx; Z92.3 Personal history of irradiation; Z95.1 Presence of aortocoronary bypass graft; Z95.5 Presence of coronary angioplasty implant and graft; Z95.810 Presence of automatic (implantable) cardiac defibrillator
CPT/HCPCS: 36415; 71010; 80048; 80061; 80076; 82550; 82553; 82947; 83735; 83880; 84484; 85027; 85520; 85610; 85730; 87641; 93005; 93306; 96374; J1815; 99285-25